=== PATIENT | female | born 1965 | race Caucasian/White ===

== ENCOUNTER 2017-03-10 14:49 | Emergency (ER) | payer OTHER ==
[2017-03-10 14:59] VITALS: BP 129/71; PULSE 59; RESP 16; TEMP 98.2; O2SAT 97
[2017-03-10] MEDS ORDERED: PROPARACAINE 0.5% 15 ML OPHT DROP LEFTEYE ONE (15:00)
--- NOTE | 2017-03-10 15:00 | EDPHY ---
H & P Stated Complaint: FB in left eye HPI/ROS: HPI CHIEF COMPLAINT: Left eye pain status post trauma HISTORY OF PRESENT ILLNESS: This patient very pleasant 51-year-old female otherwise healthy no significant medical history does not take any daily medications presents emergency room with left eye pain. Patient states she was walking out of [employer] she is wearing sunglasses something flew into her eye. She is unsure what flew into her eye. She immediately had eye pain she rubbed her eye. She thinks there is something still in it under the left upper eyelid. No loss of vision. No blurry vision. Does have photophobia. Does not wear contacts. Past Medical History: No significant medical history Past Surgical History: No significant surgical history Social History: Denies daily use drugs alcohol tobacco products Family History: Noncontributory. ROS REVIEW OF SYSTEMS: A comprehensive 10 point review of systems is otherwise negative aside from elements mentioned in the history of present illness. Exam Constitutional triage nursing summary reviewed, vital signs reviewed, awake/ alert. Eyes right eye normal, left eye; conjunctiva is injected and inflamed. Extraocular movements intact. Pupil equal round react to light. Normal accommodation. Posterior eye exam without dilatation unremarkable. Globes are soft. Visual acuity reviewed and normal. Conjunctiva is injected floor seen there is no uptake. There is no evidence of corneal abrasion or corneal tear. I do not appreciate a foreign body. Lids were everted. I do not see a conjunctival tear or corneal tear. She did get great pain relief with proparacaine. HENT normal inspection, atraumatic, moist mucus membranes, no epistaxis, neck supple/ no meningismus, no raccoon eyes. Respiratory clear to auscultation bilaterally, normal breath sounds, no respiratory distress, no wheezing. Cardiovascular rate normal, regular rhythm, no murmur, no edema, distal pulses normal. Gastrointestinal soft, non-tender, no rebound, no guarding, normal bowel sounds, no distension, no pulsatile mass. Genitourinary no CVA tenderness. Musculoskeletal no midline vertebral tenderness, full range of motion, no calf swelling, no tenderness of extremities, no meningismus, good pulses, neurovascularly intact. Skin pink, warm, & dry, no rash, skin atraumatic. Neurologic awake, alert and oriented x 3, AAOx3, moves all 4 extremities equally, motor intact, sensory intact, CN II-XII intact, normal cerebellar, normal vision, normal speech. Psychiatric normal mood/affect. Heme/Lymph/Immune no lymphadenopathy. Differential Diagnosis: Includes but is not limited to in a particular order, traumatic iritis, traumatic conjunctivitis, foreign body, conjunctival tear, iritis, uveitis, foreign body, corneal abrasion Medical Decision Making: Plan for this patient: Follow-up Ophthalmology tomorrow. Call their for an appointment. Cool compresses, Tylenol Motrin for pain control. Patient request take proparacaine home however I explained we do not do this. She will need to take Tylenol Motrin for pain control. Cool compress. Antibiotic eyedrops. Close ophthalmology follow-up. Call Ophthalmology today for follow-up appointment tomorrow. She understands. Source: Patient - Medical/Surgical History Other PMH: hysterectomy, hernia surgery, Constitutional: Initial Vital Signs Temperature (C) 36.8 C 03/10/17 14:55 Heart Rate 59 L 03/10/17 14:55 Respiratory Rate 16 03/10/17 14:55 Blood Pressure 129/71 H 03/10/17 14:55 O2 Sat (%) 97 03/10/17 14:55 O2 Delivery Mode Room Air Allergies/Adverse Reactions: No Known Allergies Allergy (Unverified 03/10/17 14:59) Home Medications: Medication Instructions Recorded Herbal Drugs 03/10/17 Ofloxacin 0.3% [Ocuflox 0.3%] 2 drops OP QID #1 opht.btl 03/10/17 Medical Decision Making - Data Points Medications Given: Discontinued Medications Proparacaine HCl (Alcaine 0.5%) 1 drops LEFTEYE ONCE ONE Stop: 03/10/17 15:01 Last Admin: 03/10/17 15:05 Dose: 1 drop Departure - Departure Disposition: Home, Routine, Self-Care Clinical Impression: Traumatic iritis Condition: Good Instructions: Iritis (ED) Additional Instructions: 1. Cool compresses. Do not rub your eye. 2. Tylenol Motrin for pain control. 3. Antibiotic eyedrops. As prescribed. 4. Please follow up with Ophthalmology tomorrow. 5. Return emergency room if you have any worsening symptoms questions or concerns. Referrals: Arslan Morales MD [Medical Doctor] - As per Instructions Prescriptions: Ofloxacin 0.3% [Ocuflox 0.3%] 2 drops OP QID #1 opht.btl
== END 2017-03-10 15:46 | disposition home or self-care (01) ==
LOC: CED 14:49
DX: S05.92XA Unspecified injury of left eye and orbit, initial encounter (principal); X58.XXXA Exposure to other specified factors, initial encounter; Y99.8 Other external cause status; Y93.01 Activity, walking, marching and hiking